=== PATIENT | male | born 1980 | race Caucasian/White ===

== ENCOUNTER 2017-02-11 09:35 | Day surgery (SDC) | payer OTHER ==
[~2017-02-11] VITALS: Ht 182.9 cm; Wt 114.0 kg
[~2017-02-11 09:35] MED LIST: RANI150C4 PO
[2017-02-11 10:08] VITALS: BP 119/63; PULSE 51; RESP 16; O2SAT 97
[2017-02-11] MEDS ORDERED: ESOM20CA28 PO (10:27)
[2017-02-11] MEDS ORDERED: 0.9% Sodium Chloride 1,000 ML IV PRN (11:18)
[2017-02-11] MEDS ORDERED: fentaNYL-PF 50 mCg/mL 2 mL Inj ONE (11:18)
[2017-02-11] MEDS ORDERED: fentaNYL-PF 50 mCg/mL 2 mL Inj IVPUSH PRN (11:20)
[2017-02-11] MEDS ORDERED: Sodium Chloride LOK Flush 10 mL Syringe IV PRN (11:20)
[2017-02-11 11:45] VITALS: BP 126/77; PULSE 50; RESP 16; O2SAT 96
[2017-02-11 11:55] VITALS: BP 121/80; PULSE 49; RESP 16; O2SAT 97
[2017-02-11 12:05] VITALS: BP 117/78; PULSE 55; RESP 16; O2SAT 100
--- NOTE | 2017-02-11 20:22 | ENDO ---
[address] [address] ENDOSCOPY PROCEDURE PATIENT: NARCISO DORADO : 1980 MR#: [id number] ADMIT: 02/11/2017 JOB ID: [id number] TYPE OF OPERATION: Esophagogastroduodenoscopy with biopsy. PREOPERATIVE DIAGNOSIS(ES): Gastroesophageal reflux disease. POSTOP DIAGNOSIS: Normal upper endoscopy. ANESTHESIA: Fentanyl 100 mcg, Versed 6 mg IV administered. COMPLICATIONS: None. BLOOD LOSS: Minimal. DESCRIPTION OF PROCEDURE: After risks and benefits explained to patient, informed consent was obtained. After anesthesia administered, upper endoscope was inserted in the mouth, intubated the esophagus, stomach, second portion of duodenum. Mucosa carefully examined. After procedure was done, the scope withdrawn, procedure terminated. FINDINGS: Upon inspection of the esophagus, esophagus was normal without masses, ulcers, or lesions. Z-line located at 40 cm from the incisors. Upon entering the stomach, the stomach was also normal without masses, ulcers, or lesions. On retroflexion, normal duodenal bulb, first and second portion were normal. Biopsies taken at the antrum, body, and mid distal esophagus. IMPRESSIONS: Normal upper endoscopy. RECOMMENDATIONS: Await pathology results. Follow up in GI clinic as needed.
--- NOTE | 2017-02-14 16:30 | PATH ---
SURGICAL PATHOLOGY Attending Physician:Larry Arnett MD CASE STATUS: Signed Out PATIENT NAME: NARCISO DORADO PID: [id number] : 1980 DATE COLLECTED:02/11/2017 19:55 SPECIMEN: 1: Stomach, Antrum, Biopsy 2: Gastric, Biopsy 3: Esophagus, Biopsy 4: Esophagus, Biopsy CLINICAL HISTORY: 1). ANTRUM BIOPSY 2). GASTRIC BODY 3). DISTAL ESOPHAGUS 4). MID ESOPHAGUS FINAL DIAGNOSIS: 1.STOMACH, ANTRUM, BIOPSY: ANTRAL MUCOSA WITH NO DIAGNOSTIC ABNORMALITY. Negative for Helicobacter organisms. Negative for intestinal metaplasia. Negative for dysplasia and malignancy. 2.STOMACH, BODY, BIOPSY: BODY-TYPE MUCOSA WITH NO DIAGNOSTIC ABNORMALITY. Negative for Helicobacter organisms. Negative for intestinal metaplasia. Negative for dysplasia and malignancy. 3. 4.ESOPHAGUS, DISTAL, MID, BIOPSIES: SQUAMOUS EPITHELIUM WITH NO DIAGNOSTIC ABNORMALITY. Intraepithelial eosinophils are not increased. Negative for dysplasia and malignancy. ICD10 code R10.9 GROSS DESCRIPTION: Received are four formalin-filled containers, each labeled with the patient' s name. 1. Received in formalin, labeled with the patient' s name and "1. Antrum BX", is one fragment of mauro, soft tissue measuring 0.3 x 0.2 x 0.1 cm. The fragment is totally submitted in cassette 1A. 2. Received in formalin, labeled with the patient' s name and "2. Body BX", is one fragment of mauro, soft tissue measuring 0.2 x 0.2 x 0.2 cm. The fragment is totally submitted in cassette 2A. 3. Received in formalin, labeled with the patient' s name and "3. Distal esoph", is one fragment of mauro, soft tissue measuring 0.3 x 0.2 x 0.1 cm. The fragment is totally submitted in cassette 3A. 4. Received in formalin, labeled with the patient' s name and "4. Mid esoph", are three fragments of mauro, soft tissue ranging in size from less than 0.1 cm by less than 0.1 cm by less than 0.1 cm to 0.2 x 0.1 x 0.1 cm. All fragments are totally submitted in cassette 4A. ([id number]) MICRO DESCRIPTION: See diagnosis. ICD-9 CODES: CPT CODES: 1: 75948 2: 12191 3: 74620 4: 94540 Electronically Signed Out Kassie Ramey MD [facility] [address], [place] [address] Technical component performed at [facility], [address], [place], [address]
== END 2017-02-11 23:59 | disposition home or self-care (01) ==
LOC: END 09:35
PROVIDERS: ATTEND Internal Medicine Gastroenterology
DX: K21.9 Gastro-esophageal reflux disease without esophagitis (principal); Z87.891 Personal history of nicotine dependence
CPT/HCPCS: 43239; G0500; J2250; J3010; J7030